=== PATIENT | female | born 1940 | race Caucasian/White ===

== ENCOUNTER → 2018-03-10 | Outpatient (CLI) | payer MEDICARE, OTHER ==
--- NOTE | 2018-03-10 12:39 | US ---
EXAMINATION TYPE: US renal artery duplex complete DATE OF EXAM: 03/10/2018 COMPARISON: NONE CLINICAL HISTORY: I10 essential hypertension; renal failure per patient MEASUREMENTS: RENAL SIZE: Rt Kidney: 10.8 x 4.4 x 4.5cm Lt Kidney: 10.1 x 6.0 x 4.7cm RESISTANCE INDEX Right: 0.72 Left: 0.74 RA/AO RATIO (< 3.5 ) Right: 2.2 Left: 1.7 RA VELOCITY ( < 180 cm/s) Right: 161.0cm/s, then rechecked = 149.1cm/s distal right renal artery Left: 129.9cm/s distal renal artery Aorta: Intimal thickening is noted in distal aorta, but size is wnl. Bilateral kidneys: no hydronephr osis or masses seen. Renal Artery Duplex: Increased PSV is noted at turbulent flow distal bilateral r enal artery with increased PSV in right renal artery greater than left renal artery. Grayscale, color Doppler, spectral Doppler imaging performed. Waveform analysis shows risk upstroke w ithin the arcuate and segmental arteries, low resistance diastolic flow is present bilaterally. IMPRESSION: Renal artery stenosis is not evident.
== END | disposition home or self-care (01) ==
LOC: RADUSMAIN 08:46
PROVIDERS: ATTEND Family Medicine
DX: I10 Essential (primary) hypertension (principal)
CPT/HCPCS: 93975

== ENCOUNTER → 2018-04-16 | Outpatient (CLI) | payer MEDICARE, OTHER ==
--- NOTE | 2018-04-16 14:31 | XR ---
Right shoulder HISTORY: Right shoulder pain 3 views of the right shoulder There is joint space loss, subchondral geode formation, marginal spurring at the glenohumeral joint. Alignment is maintained. Bone mineralization is reduced. Right lung apex as visualized is normal. Acr omioclavicular joint arthropathy suspected. IMPRESSION: Osteoarthritis.
== END | disposition home or self-care (01) ==
LOC: RADXRMAIN 10:05
PROVIDERS: ATTEND Orthopaedic Surgery
DX: M19.011 Primary osteoarthritis, right shoulder (principal)

== ENCOUNTER → 2019-11-11 | Outpatient (CLI) | payer MEDICARE, OTHER ==
--- NOTE | 2019-11-11 09:44 | US ---
EXAMINATION TYPE: US carotid duplex BILAT DATE OF EXAM: 11/11/2019 COMPARISON: NONE CLINICAL HISTORY: R55 Syncope. EXAM MEASUREMENTS: RIGHT: Peak Systolic Velocity (PSV) cm/sec ----- Right CCA: 65.1 ----- Right ICA: 90.2 ----- Right ECA: 99.6 ICA/CCA ratio: 1.4 RIGHT: End Diastole cm/sec ----- Right CCA: 12.7 ----- Right ICA: 18.9 ----- Right ECA: 8.2 LEFT: Peak Systolic Velocity (PSV) cm/sec ----- Left CCA: 82.1 ----- Left ICA: 79.8 ----- Left ECA: 82.3 ICA/CCA ratio: 1.0 LEFT: End Diastole cm/sec ----- Left CCA: 13.9 ----- Left ICA: 21.6 ----- Left ECA: 12.5 VERTEBRALS (direction of flow): Right Vertebral: antegrade Left Vertebral: antegrade Rhythm: normal IMPRESSION: No significant velocity elevations, mild plaque. Criteria for Assigning % of Stenosis / Diameter reduction (Estimation based on the indirect measurements of the internal carotid artery velocities (ICA PSV). 1. Normal (no stenosis)=ICA PSV < 125 cm/s: ratio < 2.0: ICA EDV<40 cm/s. 2. Less than 50% stenosis=ICA PSV < 125 cm/s: ratio < 2.0: ICA EDV<40 cm/s. 3. 50 to 69% stenosis=ICA PSV of 125 to 230 cm/s: ration 2.0 ? 4.0: ICA EDV 40-100 cm/s. 4. Greater than 70% stenosis to near occlusion= ICA PSV > 230 cm/s: ratio > 4.0: ICA EDV > 100 cm/s. 5. Near occlusion= ICA PSV velocities may be low or undetectable: variable ratio and ICA EDV. 6. Total occlusion=unable to detect flow.
== END | disposition home or self-care (01) ==
LOC: RADUSWWP 08:38
PROVIDERS: ATTEND Family Medicine
DX: R55 Syncope and collapse (principal)
CPT/HCPCS: 93880

== ENCOUNTER 2021-04-05 13:51 | Emergency (ER) | payer MEDICARE, OTHER ==
[2021-04-05 14:05] VITALS: RESP 16
[2021-04-05] MEDS ORDERED: ASPIRIN 81 MG PO STA (15:31)
--- NOTE | 2021-04-05 16:06 | XR ---
EXAMINATION TYPE: XR chest 2V DATE OF EXAM: 04/05/2021 COMPARISON: NONE HISTORY: Shortness of breath TECHNIQUE: Frontal and lateral views of the chest are obtained. FINDINGS: Scattered senescent parenchymal changes noted. Hyperinflation compatible with COPD. No evidence for infiltrate. No evidence for atelectasis. Heart size is stable. Mediastinal structures are stable and grossly unremarkable. No evidence for hilar prominence. Degenerative changes dorsal spine. IMPRESSION: 1. No evidence for acute pulmonary disease.
[2021-04-05 16:08] LABS: Calcium 9.5 mg/dL (8.4-10.2); Magnesium 1.8 mg/dL (1.6-2.3); Potassium 4.4 mmol/L (3.5-5.1); Total Bilirubin 0.6 mg/dL (0.2-1.3); Total Protein 6.7 g/dL (6.3-8.2)
[2021-04-05 16:10] LABS: INR 0.9 (<1.2); Prothrombin Time 9.9 sec (9.0-12.0)
[2021-04-05 16:26] LABS: Appearance,Urine Clear (Clear); Bacteria,Urine Occasional /hpf; Bilirubin,Urine Negative (Negative); Blood,Urine Negative (Negative); Color,Urine Yellow; Glucose,Urine (UA) Negative (Negative); Hyaline Casts,Urine 9 /lpf (0-2); Ketones,Urine Negative (Negative); Leukocyte Esterase,Urine Small (Negative); Mucus,Urine Rare /hpf; Nitrite,Urine Positive (Negative); PH, Urine 5.5 (5.0-8.0); Protein,Urine Negative (Negative); RBC,Urine <1 /hpf (0-5); Specific Gravity,Urine 1.017 (1.001-1.035); Squamous Epithelial Cell,Urine 2 /hpf (0-4); Urobilinogen,Urine <2.0 mg/dL (<2.0); WBC,Urine 16 /hpf (0-5)
--- NOTE | 2021-04-05 16:29 | ED ---
General Adult HPI - General Chief complaint: Syncope Stated complaint: Syncope Source: patient, RN notes reviewed, old records reviewed Mode of arrival: EMS Limitations: no limitations - History of Present Illness Initial comments: I evaluated the patient at the beginning of my shift when she was placed in a room. Patient is a 80-year-old female with past medical history remarkable for CAD, hypertension, pulmonary embolism currently on anticoagulation who presents emergency Department complaining of near-syncopal episodes at home. Patient states that this morning when she woke she was having chest palpitations and had multiple near syncopal episodes occurring over the course of 1-2 hours. She states that she is not doing anything specific prior to the episodes. She states the palpitations began after the syncopal episodes. She denied any shortness of breath, nausea, vomiting, dizziness. Does describe these syncopal episodes as near blacking out of vision. Patient states that she was sitting down for some while standing up for others. She does not know how many exactly she had. They self resolved and have not recurred since. She presents multiple hours after symptoms and is currently asymptomatic. Denies any weakness, numbness. Denies any blurry vision. She is compliant with her anticoagulation. She has no other acute complaints at this time. Denies chest pain. - Related Data Home Medications Medication Instructions Recorded Confirmed Allopurinol [Zyloprim] 100 mg PO DAILY 04/05/21 04/05/21 Apixaban [Eliquis] 5 mg PO BID 04/05/21 04/05/21 Bimatoprost [Lumigan .01% Ophth 1 drop BOTH EYES HS 04/05/21 04/05/21 Soln] Brinzolamide/Brimonidine Tart 1 drop LEFT EYE BID 04/05/21 04/05/21 [Simbrinza 1%-0.2% Eye Drops] Ezetimibe [Zetia] 10 mg PO DAILY 04/05/21 04/05/21 Famotidine [Pepcid] 40 mg PO HS 04/05/21 04/05/21 Losartan [Cozaar] 50 mg PO BID 04/05/21 04/05/21 Metoprolol Tartrate [Lopressor] 25 mg PO BID 04/05/21 04/05/21 Timolol 0.5% Ophth Soln [Timoptic 1 drop LEFT EYE BID 04/05/21 04/05/21 0.5% Ophth Soln] amLODIPine [Norvasc] 5 mg PO DAILY 04/05/21 04/05/21 Previous Rx's Medication Instructions Recorded Sulfamethox-Tmp 800-160Mg [Bactrim 1 tab PO Q12HR 5 Days #10 cap 04/05/21 DS 800-160 mg] Allergies Allergy/AdvReac Type Severity Reaction Status Date / Time Penicillins Allergy Rash/Hives Verified 04/05/21 17:00 Review of Systems ROS Statement: Those systems with pertinent positive or pertinent negative responses have been documented in the HPI. Review of Systems: CONST: Denies fever EYES: Denies blurry vision ENT: Denies nasal congestion C/V: Denies Chest pain RESP: Denies shortness of breath GI: Denies abdominal pain : Denies dysuria SKIN: Denies rash. MSK: Denies joint pain. NEURO: Denies headache ROS Other: All systems not noted in ROS Statement are negative. Past Medical History Past Medical History: Eye Disorder, Hyperlipidemia, Hypertension, Pulmonary Embolus (PE) History of Any Multi-Drug Resistant Organisms: None Reported Past Surgical History: Appendectomy, Hysterectomy Additional Past Surgical History / Comment(s): KNEE REPLACEMENT X 2 ; Past Psychological History: No Psychological Hx Reported Smoking Status: Never smoker Past Alcohol Use History: None Reported Past Drug Use History: None Reported General Exam - General Exam Comments Initial Comments: General: Appears in no acute distress. HEAD: Normal with no signs of head trauma. EYES: PERRLA, EOMI, conjunctiva normal, no discharge. ENT: Hearing grossly intact, normal oropharynx. RESPIRATORY: Clear breath sounds bilaterally. No wheezes, rales, or rhonchi. C/V: Regular rate and rhythm. S1 and S2 auscultated, no edema, peripheral pulses 2+ and intact throughout ABD: Abd is soft, nontender, nondistended EXT: Normal range of motion, no obvious deformity SKIN: No rashes or lesions observed on exposed skin. NEURO: Alert and oriented x 4. Cranial nerves II-XII intact. No focal sensory or strength deficits. Cerebellar function is intact as evident by normal finger nose testing. Patient is able to ambulate without difficulty. NIH is 0. GCS is 15. Limitations: no limitations Course Vital Signs 04/05/21 04/05/21 04/05/21 13:58 14:08 18:04 Temperature 98.4 F 98.4 F 98.2 F Pulse Rate 61 61 66 Respiratory 16 16 16 Rate Blood Pressure 144/71 144/71 167/79 O2 Sat by Pulse 97 98 98 Oximetry Medical Decision Making - Medical Decision Making Based on the patient's presentation and physical exam, she appeared to have palpitations as well as multiple syncopal episodes earlier. Has no clear etiology. She is currently is symptom headache. However with her history of cardiac illness, I would like to obtain a cardiac workup including labs, EKG, chest x-ray. Patient was in agreement with this plan. She will be given 325 mg of aspirin. EKG revealed a left bundle branch block with possible ST segment or J point elevations in V1 through V3 and first-degree AV block. I did attempt to compared to prior EKGs believe none in our system. I spoke with cardiology on- call and was able to show them EKG, Dr. Luna he states that it is left bundle branch block without any ST segment changes. Chest x-ray reveals no acute cardiopulmonary process. Laboratory studies are remarkable for a UTI with nitrite positive and leukocyte esterase positive with WBCs. She could be considered symptomatic secondary to her near syncopal episo elpidio earlier. She will be given a 1 g IV push of Rocephin as well as an outpatient prescription. I spoke at length with the patient as well as her daughter in the room regarding her workup. As her symptoms occurred multiple hours ago, and she has negative cardiac workup at this time I do believe it is safer to be discharged home. Heart score is 3. I discussed with the patient at length, and she would like to go home as she has been a symptomatically since this morning. There is a cause for her lightheadedness. Troponin would be expected be elevated if it was a cardiac issue at this time as it has been over 4 hours since she experienced the symptoms. She would like To go home with follow-up as she does have cardiology as well as PCP appointment next week. I did offer observation admission have concern, however she rated she would like to go home. I do believe this is reasonable. Strict return precautions will be provided. I will provide the patient with a prescription for Bactrim. I instructed the patient to follow up with their PCP in the next 3 days. I explained that the patient should return to the emergency department if they experience any worsen ing symptoms. Strict return precautions were discussed with the patient. The patient expressed understanding of these instructions. I answered all questions that the patient had. The patient was discharged home in good Condition with their prescriptions and follow up information. - Lab Data Result diagrams: 04/05/21 15:42 04/05/21 15:42 Lab Results 04/05/21 04/05/21 04/05/21 Range/Units 15:42 15:42 15:42 WBC 3.7 L (3.8-10.6) k/uL RBC 3.54 L (3.80-5.40) m/uL Hgb 12.3 (11.4-16.0) gm/dL Hct 38.8 (34.0-46.0) % MCV 109.5 H (80.0-100.0) fL MCH 34.7 (25.0-35.0) pg MCHC 31.7 (31.0-37.0) g/dL RDW 12.9 (11.5-15.5) % Plt Count 209 (150-450) k/uL MPV 8.8 Neutrophils % 59 % Lymphocytes % 26 % Monocytes % 11 % Eosinophils % 1 % Basophils % 1 % Neutrophils # 2.2 (1.3-7.7) k/uL Lymphocytes # 0.9 L (1.0-4.8) k/uL Monocytes # 0.4 (0-1.0) k/uL Eosinophils # 0.1 (0-0.7) k/uL Basophils # 0.0 (0-0.2) k/uL Macrocytosis Marked A PT 9.9 (9.0-12.0) sec INR 0.9 (<1.2) APTT 26.0 (22.0-30.0) sec Sodium 136 L (137-145) mmol/L Potassium 4.4 (3.5-5.1) mmol/L Chloride 105 (98-107) mmol/L Carbon Dioxide 22 (22-30) mmol/L Anion Gap 9 mmol/L BUN 29 H (7-17) mg/dL Creatinine 1.03 (0.52-1.04) mg/dL Est GFR (CKD-EPI)AfAm 60 (>60 ml/min/1.73 sqM) Est GFR (CKD-EPI)NonAf 52 (>60 ml/min/1.73 sqM) Glucose 92 (74-99) mg/dL Calcium 9.5 (8.4-10.2) mg/dL Magnesium 1.8 (1.6-2.3) mg/dL Total Bilirubin 0.6 (0.2-1.3) mg/dL AST 25 (14-36) U/L ALT 17 (4-34) U/L Alkaline Phosphatase 66 (38-126) U/L Troponin I (0.000-0.034) ng/mL Total Protein 6.7 (6.3-8.2) g/dL Albumin 4.0 (3.5-5.0) g/dL Urine Color Urine Appearance (Clear) Urine pH (5.0-8.0) Ur Specific [place] (1.001-1.035) Urine Protein (Negative) Urine Glucose (UA) (Negative) Urine Ketones (Negative) Urine Blood (Negative) Urine Nitrite (Negative) Urine Bilirubin (Negative) Urine Urobilinogen (<2.0) mg/dL Ur Leukocyte Esterase (Negative) Urine RBC (0-5) /hpf Urine WBC (0-5) /hpf Ur Squamous Epith Cells (0-4) /hpf Urine Bacteria (None) /hpf Hyaline Casts (0-2) /lpf Urine Mucus (None) /hpf 04/05/21 04/05/21 Range/Units 15:42 15:50 WBC (3.8-10.6) k/uL RBC (3.80-5.40) m/uL Hgb (11.4-16.0) gm/dL Hct (34.0-46.0) % MCV (80.0-100.0) fL MCH (25.0-35.0) pg MCHC (31.0-37.0) g/dL RDW (11.5-15.5) % Plt Count (150-450) k/uL MPV Neutrophils % % Lymphocytes % % Monocytes % % Eosinophils % % Basophils % % Neutrophils # (1.3-7.7) k/uL Lymphocytes # (1.0-4.8) k/uL Monocytes # (0-1.0) k/uL Eosinophils # (0-0.7) k/uL Basophils # (0-0.2) k/uL Macrocytosis PT (9.0-12.0) sec INR (<1.2) APTT (22.0-30.0) sec Sodium (137-145) mmol/L Potassium (3.5-5.1) mmol/L Chloride (98-107) mmol/L Carbon Dioxide (22-30) mmol/L Anion Gap mmol/L BUN (7-17) mg/dL Creatinine (0.52-1.04) mg/dL Est GFR (CKD-EPI)AfAm (>60 ml/min/1.73 sqM) Est GFR (CKD-EPI)NonAf (>60 ml/min/1.73 sqM) Glucose (74-99) mg/dL Calcium (8.4-10.2) mg/dL Magnesium (1.6-2.3) mg/dL Total Bilirubin (0.2-1.3) mg/dL AST (14-36) U/L ALT (4-34) U/L Alkaline Phosphatase (38-126) U/L Troponin I <0.012 (0.000-0.034) ng/mL Total Protein (6.3-8.2) g/dL Albumin (3.5-5.0) g/dL Urine Color Yellow Urine Appearance Clear (Clear) Urine pH 5.5 (5.0-8.0) Ur Specific [place] 1.017 (1.001-1.035) Urine Protein Negative (Negative) Urine Glucose (UA) Negative (Negative) Urine Ketones Negative (Negative) Urine Blood Negative (Negative) Urine Nitrite Positive H (Negative) Urine Bilirubin Negative (Negative) Urine Urobilinogen <2.0 (<2.0) mg/dL Ur Leukocyte Esterase Small H (Negative) Urine RBC <1 (0-5) /hpf Urine WBC 16 H (0-5) /hpf Ur Squamous Epith Cells 2 (0-4) /hpf Urine Bacteria Occasional H (None) /hpf Hyaline Casts 9 H (0-2) /lpf Urine Mucus Rare H (None) /hpf - EKG Data -: EKG Interpreted by Me EKG Comments: 12-lead Electrocardiogram Interpretation Note EKG was reviewed and interpreted by myself. 12-lead ECG performed at 1443 is i nterpreted by me as revealing sinus bradycardia with first-degree AV block at a rate of 57 beats per minute. [place] is normal. [place] interval is 220 ms, QRS durations 166 ms, QTc is 455 ms.. There are mild ST segment versus J-point elevations in V1 through V3. It is a left bundle branch block pathology.. [R wave progression across the precordium was satisfactory]. By my interpretation, this EKG shows left bundle branch block with possible J-point elevations versus ST segment elevations in V1 through V3. No prior EKG for comparison. Disposition Clinical Impression: Near syncope, Left bundle branch block (LBBB), UTI (urinary tract infection) Disposition: HOME SELF-CARE Condition: Good Instructions (If sedation given, give patient instructions): Urinary Tract Infection in Women (ED) Prescriptions: Sulfamethox-Tmp 800-160Mg [Bactrim DS 800-160 mg] 1 tab PO Q12HR 5 Days #10 cap Is patient prescribed a controlled substance at d/c from ED?: No Referrals: Clifford Nathan MD [Primary Care Provider] - 1-2 days
[2021-04-05 16:43] LABS: Basophils % (A) 1 %; Eosinophils # (A) 0.1 k/uL (0-0.7); Eosinophils % (A) 1 %; HCT 38.8 % (34.0-46.0); HGB 12.3 gm/dL (11.4-16.0); Lymphocytes # (A) 0.9 k/uL (1.0-4.8); Lymphocytes % (A) 26 %; MCH 34.7 pg (25.0-35.0); MCHC 31.7 g/dL (31.0-37.0); MCV 109.5 fL (80.0-100.0); Macrocytosis Marked; Mean Platelet Volume 8.8; Monocytes # (A) 0.4 k/uL (0-1.0); Monocytes % (A) 11 %; Neutrophils # (A) 2.2 k/uL (1.3-7.7); Neutrophils % (A) 59 %; Platelet Count 209 k/uL (150-450); RBC 3.54 m/uL (3.80-5.40); RDW 12.9 % (11.5-15.5); WBC 3.7 k/uL (3.8-10.6)
[2021-04-05] MEDS ORDERED: cefTRIAXone IN SWFI 1,000 MG/10 ML SYRINGE IVP STA (17:42)
[2021-04-05 18:04] VITALS: BP 167/79; PULSE 66; TEMP 98.2
== END 2021-04-05 18:48 | disposition home or self-care (01) ==
LOC: EC 13:51
DX: R55 Syncope and collapse (principal); I44.7 Left bundle-branch block, unspecified; N39.0 Urinary tract infection, site not specified; E78.5 Hyperlipidemia, unspecified; I10 Essential (primary) hypertension; Z79.01 Long term (current) use of anticoagulants; Z88.0 Allergy status to penicillin; Z86.711 Personal history of pulmonary embolism; Z90.49 Acquired absence of other specified parts of digestive tract; Z90.710 Acquired absence of both cervix and uterus
CPT/HCPCS: 99285; 96374; 36415; 80053; 83735; 84484; 85025; 85610; 85730; 81001; 71046; J0696

== ENCOUNTER → 2023-07-17 | Outpatient (CLI) | payer MEDICARE, OTHER ==
--- NOTE | 2023-07-18 07:42 | US ---
EXAMINATION TYPE: US carotid duplex BILAT DATE OF EXAM: 07/17/2023 COMPARISON: NONE CLINICAL INDICATION: Female, 83 years old with history of R55 SYNCOPE AND COLLAPSE; dizziness TECHNIQUE: Carotid duplex ultrasound examination. Indirect Doppler criteria was utilized. FINDINGS: EXAM MEASUREMENTS: RIGHT: Peak Systolic Velocity (PSV) cm/sec ----- Right CCA: 54.0 ----- Right ICA: 71.6 ----- Right ECA: 79.5 ICA/CCA ratio: 1.3 RIGHT: End Diastole cm/sec ----- Right CCA: 11.0 ----- Right ICA: 21.2 ----- Right ECA: 9.7 LEFT: Peak Systolic Velocity (PSV) cm/sec ----- Left CCA: 56.3 ----- Left ICA: 73.1 ----- Left ECA: 63.3 ICA/CCA ratio: 1.3 LEFT: End Diastole cm/sec ----- Left CCA: 17.7 ----- Left ICA: 25.7 ----- Left ECA: 11.0 VERTEBRALS (direction of flow): Right Vertebral: Antegrade Left Vertebral: Antegrade Rhythm: Normal CHEMICAL PREPARER NOTES: Mild atherosclerotic bilateral bulbs IMPRESSION: No evidence for hemodynamically significant stenosis Criteria for Assigning % of Stenosis / Diameter reduction (Estimation based on the indirect measurements of the internal carotid artery velocities (ICA PSV). 1. Normal (no stenosis)=ICA PSV < 125 cm/s: ratio < 2.0: ICA EDV<40 cm/s. 2. Less than 50% stenosis=ICA PSV < 125 cm/s: ratio < 2.0: ICA EDV<40 cm/s. 3. 50 to 69% stenosis=ICA PSV of 125 to 230 cm/s: ration 2.0 ? 4.0: ICA EDV 40-100 cm/s. 4. Greater than 70% stenosis to near occlusion= ICA PSV > 230 cm/s: ratio > 4.0: ICA EDV > 100 cm/s. 5. Near occlusion= ICA PSV velocities may be low or undetectable: variable ratio and ICA EDV. 6. Total occlusion=unable to detect flow.
== END | disposition home or self-care (01) ==
LOC: RADUSWWP 14:09
PROVIDERS: ATTEND Family Medicine
DX: R55 Syncope and collapse (principal); R42 Dizziness and giddiness
CPT/HCPCS: 93880